=== PATIENT | male | born 1995 | race Caucasian/White ===

== ENCOUNTER 2022-12-05 05:19 | Emergency (ER) | payer OTHER ==
[~2022-12-05] VITALS: Ht 170.2 cm; Wt 81.6 kg
--- NOTE | 2022-12-05 05:21 | NUR ---
Joce zarco in ED - 12/05/[address] Bustos at [facility]. CRYSTAL in progress.
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
[2022-12-05] MEDS ORDERED: ACETAMINOPHEN ES 500 MG TABLET PO ONE (05:30)
[2022-12-05] MEDS ORDERED: LIDOCAINE 1%-EPI 1:100,000 20 ML VIAL ONE (05:43)
[2022-12-05] MEDS ORDERED: ACETAMINOPHEN ES 500 MG TABLET ONE (05:43)
[2022-12-05] MEDS ORDERED: NEOMY/BACITRA/POLYMYXIN B OINT UD PACKET TP ONE ×2 (05:43→05:45)
[2022-12-05] MEDS ORDERED: LIDOCAINE HCL 1% 20 ML VIAL TP ONE (05:45)
--- NOTE | 2022-12-05 05:50 | NUR ---
Tylenol 1000mg PO given as ordered as DR. Max will given to Lidocain HCL1% 10ML and Triple Antibiotic B Ointment . Pt care continue.
--- NOTE | 2022-12-05 06:32 | NUR ---
Pt is noted off the unit to CT. Pt care continue.
--- NOTE | 2022-12-05 06:45 | NUR ---
Pt is noted back from CT. Pt care continue as awaits results.
--- NOTE | 2022-12-05 07:01 | NUR ---
Pt care continue as report is given to the AM receiving nurse.
--- NOTE | 2022-12-05 10:32 | NUR ---
PT WAS D/C'd TO HOME. D/C INSTRUCTIONS GIVEN TO THE PT BY DR STEWARD.
[2022-12-05 10:34] VITALS: BP 128/77
== END 2022-12-05 10:35 | disposition home or self-care (01) ==
LOC: ER 05:19
DX: S81.811A Laceration without foreign body, right lower leg, initial encounter (principal); S16.1XXA Strain of muscle, fascia and tendon at neck level, initial encounter; S09.90XA Unspecified injury of head, initial encounter; V49.9XXA Car occupant (driver) (passenger) injured in unspecified traffic accident, initial encounter; Y93.89 Activity, other specified; Y92.410 Unspecified street and highway as the place of occurrence of the external cause; Y99.8 Other external cause status
CPT/HCPCS: 99284; 70450; 73590; 73610; 72125; 12001; J3490; A4663; A9150